=== PATIENT | female | born 1945 | race Caucasian/White ===

== ENCOUNTER 2024-11-30 09:50 | Day surgery (SDC) | payer MEDICARE, SELFPAY ==
[2024-11-30 10:21] VITALS: BMI 24.3
[2024-11-30 10:29] VITALS: BP 149/86; PULSE 64; RESP 16; TEMP 37.1; O2SAT 95
[2024-11-30] MEDS: 0.9 % SODIUM CHLORIDE 500 ML 500 ML 100 ML IV (10:30)
[2024-11-30] MEDS: SODIUM CHLORIDE 0.9 % (FLUSH) 10 ML SYRINGE IVF (10:30)
--- NOTE | 2024-11-30 11:12 | SUR.PREOP ---
Patient case cancelled per Dr. Carey. Patient needs to be off Remicaid for 4-6 weeks prior to surgery.
--- NOTE | 2024-11-30 11:13 | PM.GSPN ---
Subjective Subjective Date Seen: 11/30/24 Interval history: Patient did not hold her last dose of Remicade on 11/17/2024. I recommended to hold her Remicade for 4-6 weeks prior to proceeding with surgery. Her surgery today was canceled. Exam Const: Vital Signs, click to edit/add: Vital Signs - 24 hr 11/30/24 10:29 Temperature 98.8 F Pulse Rate 64 Respiratory Rate 16 Blood Pressure 149/86 H Pulse Oximetry 95 Oxygen Delivery Me thod Room Air
== END 2024-11-30 11:15 | disposition home or self-care (01) ==
PROVIDERS: PCP Family Medicine; Visit Provider Surgery
PROC: (CPT 49650; principal; 2024-11-30 11:30)
DX: Z53.09 Procedure and treatment not carried out because of other contraindication (principal); K40.90 Unilateral inguinal hernia, without obstruction or gangrene, not specified as recurrent
CPT/HCPCS: J7030

== ENCOUNTER 2024-12-29 06:06 | Day surgery (SDC) | payer MEDICARE, SELFPAY ==
[2024-12-29] VITALS (18 sets, daily range): BP systolic 109–151; BP diastolic 61–119; PULSE 44–662; RESP 14–20; TEMP 36.1–36.8; O2SAT 90–98; BMI 25.8
[2024-12-29] MEDS: LACTATED RINGERS 1000 ML 1,000 ML 100 ML IV (06:20)
[2024-12-29] MEDS: SODIUM CHLORIDE 0.9 % (FLUSH) 10 ML SYRINGE IVF (06:22)
--- NOTE | 2024-12-29 07:10 | P.GSOP_ITS ---
Operative Note Date of procedure: 12/29/24 Pre-op diagnosis: 1. Symptomatic left inguinal hernia. Post-op diagnosis: 1. Small direct and moderately sized indirect left inguinal hernia. Type of Procedure: 1. Laparoscopic left inguinal hernia repair with mesh. Indications: 79-year-old female on Remicade and prednisone for rheumatoid arthritis presented to clinic for evaluation of a left inguinal pain. She initially noticed this pain several months prior to presentation. The pain happened at random times and became severe. The pain lasted half a day. She was not sure if strenuous activity increase the pain. She also did not notice a bulge. Patient's most recent abdominal CT showed fat containing left inguinal hernia. There was also evidence of diverticulosis without diverticulitis. On clinical exam with the patient standing up and doing Valsalva there was no clear evidence of left inguinal hernia. Given patient's clinical history and her intermittent symptoms as well as the finding of fat containing inguinal hernia on CT scan, laparoscopic left inguinal hernia repair was recommended. The procedure was discussed in detail. The risks associated procedure including infection, bleeding, persistent pain, nerve pain, hernia recurrence were all discussed with the patient, and she agreed to proceed. Patient held her Remicade for 6 weeks and Prednisone 1 week ago. Procedure Description: After discussing the risks and benefits of the procedure, the patient signed inf ormed consent.? The operative site was marked and the patient was brought to the operating room and placed on the operating table in supine position.? Care was taken to pad the patient's pressure points.?? The patient was then intubated by anesthesia.?? The operative site was then prepped and draped in the usual sterile fashion.? A time-out was then performed. An infraumbilical skin incision was made with a scalpel and subcutaneous tissues were dissected with electrocautery. Anterior sheath was incised with electrocautery and rectus muscle was retracted laterally. A 12 mm spacemaker dissector system was introduced into the incision and advanced over the posterior sheath. Preperitoneal space was dissected with manually insufflating air under direct visualization. Once the tissues were dissected, the balloon was deflated and removed.? A laparoscopic balloon was placed into preperitoneal space and balloon was inflated. Preperitoneal space was insufflated with air. No bleeding was identified upon examination of preperitoneal space. We then placed two 5 mm ports suprapubically under direct visualization. ? The preperitoneal tissues were bluntly dissected with graspers.? The pubic bone was identified and? cleared from preperitoneal tissue.?? Inferior epigastrics on the left?side were retracted towards the abdominal wall.?? The round ligament and hernia sac were identified and were incarcerated in the left inguinal canal. The hernia sac was dissected off round ligament bluntly. The hernia sac was then reduced cranially. The round ligament was clipped with two 5 mm clips proximally and distally and divided between the clips. When adequate space was developed for mesh placement, a large left-sided 3D max Bard mesh was used and positioned around the spermatic cord. The mesh was tacked medially and laterally with?tacks.? Additional local anesthetic was injected directly into pre- peritoneal space. ? The space was deflated under direct visualization and mesh appeared to be still lying in a good position. The ports were then removed. Anterior sheath was then closed with a running 0-0 vicryl suture. Skin was closed with 4-0 monocryl using subcuticular stitch. Steri strips were applied over the laparoscopic?incisions. ? All counts were correct at the end of the case. Patient tolerated the procedure well and was transferred to PACU without any complications. Findings: Small direct hernia space and moderately sized indirect hernia sac incarcerated in the inguinal canal. This was reduced and repaired his mesh. Anesthesia: GETA Surgeon: Orestes Carey MD Estimated blood loss (mL): 5 Condition: stable Disposition: PACU
--- NOTE | 2024-12-29 07:10 | W.PM.H&PU ---
History & Physical Update History & Physical Update H&P Reviewed and patient assessed: No changes noted
[2024-12-29] MEDS: CEFAZOLIN 1 GM inj IVP (07:35)
[2024-12-29] MEDS: LIDOCAINE 1%-EPI 1:100,000 20 ML INFILTRATI (07:49)
[2024-12-29] MEDS: BUPIVACAINE 0.25% 30 ML INJECTION (07:49)
--- NOTE | 2024-12-29 08:38 | P.ANES_ITS ---
Anesthesia Charges Start Date/Time Anesthesia Start Date: 12/29/24 Anesthesia Start Time: 07:24 Stop Date/Time Anesthesia Stop Date: 12/29/24 Anesthesia Stop Time: 08:38 Summary Extremes of Age - Over 70 or under 1: FACE WORKER Coding CPT Codes CPT Codes: ANESTH REPAIR OF HERNIA - 96476 ([id number]) P3 - PATIENT W/SEVERE SYS DISEASE, QK - RELOCATION SERVICES SPECIALIST 2-4 CNCRNT ANES PROC, QX - FACE WORKER SVC W/ MD MED DIRECTION Additional Codes: Summary - Extremes of Age - Over 70 or under 1: FACE WORKER ([id number])
--- NOTE | 2024-12-29 08:38 | W.ANESCHARGE ---
Anesthesia Charges Start Date/Time Anesthesia Start Date: 12/29/24 Anesthesia Start Time: 07:24 Stop Date/Time Anesthesia Stop Date: 12/29/24 Anesthesia Stop Time: 08:38 Summary Extremes of Age - Over 70 or under 1: LACE PINNER Coding CPT Codes CPT Codes: ANESTH REPAIR OF HERNIA - 25895 ([id number]) P3 - PATIENT W/SEVERE SYS DISEASE, QK - CONTAINER WASHER 2-4 CNCRNT ANES PROC, QX - LACE PINNER SVC W/ MD MED DIRECTION Additional Codes: Summary - Extremes of Age - Over 70 or under 1: LACE PINNER ([id number])
--- NOTE | 2024-12-29 08:51 | SUR.PHASEI ---
Patient arrived to PACU. Stating an 8 for abdomen pain. Talked to anesthesia about her history with narcotics and excessive sleepiness. Anesthesia hung Tylenol IV for pain medication.
[2024-12-29] MEDS: HYDROmorphone 0.5 mg/0.5 ml inj IVP ×2 (08:58→09:17)
--- NOTE | 2024-12-29 09:04 | SUR.PHASEI ---
Consult with MDA after tylenol did not relieve pain. 0.25 mg of hydromorphone given
--- NOTE | 2024-12-29 09:28 | SUR.PHASEI ---
patient meets discharge criteria from PACU.
--- NOTE | 2024-12-29 09:41 | P.ANES_ITS ---
Anesthesia Charges Start Date/Time Anesthesia Start Date: 12/29/24 Anesthesia Start Time: 07:24 Stop Date/Time Anesthesia Stop Date: 12/29/24 Anesthesia Stop Time: 08:38 Coding CPT Codes CPT Codes: ANESTH SURGERY OF ABDOMEN - 08524 ([id number]) QK - GEOSPATIAL IMAGERY INTELLIGENCE ANALYST 2-4 CNCRNT ANES PROC, QX - HOSPITAL AIDE SVC W/ MD MED DIRECTION, P3 - PATIENT W/SEVERE SYS DISEASE
--- NOTE | 2024-12-29 09:41 | W.ANESCHARGE ---
Anesthesia Charges Start Date/Time Anesthesia Start Date: 12/29/24 Anesthesia Start Time: 07:24 Stop Date/Time Anesthesia Stop Date: 12/29/24 Anesthesia Stop Time: 08:38 Coding CPT Codes CPT Codes: ANESTH SURGERY OF ABDOMEN - 00096 ([id number]) QK - IT SECURITY PROJECT MANAGER 2-4 CNCRNT ANES PROC, QX - JAVA ENGINEER SVC W/ MD MED DIRECTION, P3 - PATIENT W/SEVERE SYS DISEASE
--- NOTE | 2024-12-29 09:43 | P.ANES_ITS ---
Anesthesia Charges Start Date/Time Anesthesia Start Date: 12/29/24 Anesthesia Start Time: 07:24 Stop Date/Time Anesthesia Stop Date: 12/29/24 Anesthesia Stop Time: 08:38 Summary Extremes of Age - Over 70 or under 1: MDA Coding CPT Codes CPT Codes: ANESTH SURGERY OF ABDOMEN - 73231 ([id number]) P3 - PATIENT W/SEVERE SYS DISEASE, QK - VISUAL BASIC DEVELOPER 2-4 CNCRNT ANES PROC, QX - CURING BIN OPERATOR SVC W/ MD MED DIRECTION Additional Codes: Summary - Extremes of Age - Over 70 or under 1: MDA ([id number])
--- NOTE | 2024-12-29 09:43 | W.ANESCHARGE ---
Anesthesia Charges Start Date/Time Anesthesia Start Date: 12/29/24 Anesthesia Start Time: 07:24 Stop Date/Time Anesthesia Stop Date: 12/29/24 Anesthesia Stop Time: 08:38 Summary Extremes of Age - Over 70 or under 1: MDA Coding CPT Codes CPT Codes: ANESTH SURGERY OF ABDOMEN - 63444 ([id number]) P3 - PATIENT W/SEVERE SYS DISEASE, QK - PIN MACHINE OPERATOR 2-4 CNCRNT ANES PROC, QX - DEPENDENCY CASE MANAGER SVC W/ MD MED DIRECTION Additional Codes: Summary - Extremes of Age - Over 70 or under 1: MDA ([id number])
[2024-12-29] MEDS: IBUPROFEN 400 MG TABLET PO (11:30)
[2024-12-29] MEDS: METOCLOPRAMIDE HCL 5 MG/ML INJ 10 MG IVP (12:05)
== END 2024-12-29 12:35 | disposition home or self-care (01) ==
PROVIDERS: PCP Family Medicine; Visit Provider Surgery
PROC: (CPT 49650; principal; 2024-12-29 07:30)
DX: K40.90 Unilateral inguinal hernia, without obstruction or gangrene, not specified as recurrent (principal)
CPT/HCPCS: 49650; 00830; 00860; 99100; A9270; C1781; J0330; J0665; J0690; J1100; J1171; J2405; J2704; J2710; J2765; J3475; J3490; J7120

== ENCOUNTER 2025-07-08 10:30 | Emergency (ER) | payer MEDICARE, SELFPAY ==
--- OUTSIDE RECORDS SUMMARY | 2025-07-08 10:41 | XMS_ITS | Encounter Summary ---
Author Organization [facility] Address [address] [address] Care Team Providers Care [employer] Delivery Name Role Phone No Primary/Referring, Phy Primary Care Provider Unavailable Encounter Details Date Type Department Care Team (Late st Contact Info) Description 11/16/2011 Correspondence External to External, [place] [address] ABN Social History Tobacco Use Types Packs/Day Years Used Date Smoking Tobacco: Never Assessed Comments Unknown Sex and Gender Information Value Date Recorded Sex Assigned at Not on file Legal Sex Female 6:46 AM CDT Gender Identity Not on file Sexual Orientation Not on file documented as of this encounter Progress Notes * External, Provider - 11/16/2011 12:00 AM CST documented in this encounter Plan of Treatment Not on file documented as of this encounter Visit Diagnoses Not on filedocumented in this encounter Care Teams [employer] Delivery Relationship Specialty Start Date End Date No Primary/Referring, Phy PCP - General 06/27/12 documented as of this encounter
--- OUTSIDE RECORDS SUMMARY | 2025-07-08 10:41 | XMS_ITS | Clinical Summary ---
Author Organization [employer] [facility] Address [address] [place] [address] Care Team Providers Care Travel Accommodations Rater Name Role Phone Katheryn Linn DO Primary Care Provider [phone] Allergies Active Allergy Reactions Criticality Noted Date Comments Fentanyl *Unknown 11/03/2024 hard to wake up Medications inFLIXimab (REMICADE) 100 mg injectionIndicat ions:Rheumatoid arthritis(714.0) Gets every 6 weeks 600 mg 0 09/12/20 12 Active omeprazole (PRILOSEC) 20 mg Delayed-Release capsule Take 20 mg by mouth once daily if needed. 08/09/20 22 Active predniSONE (DELTASONE) 1 mg tablet Take 2 Tablets by mouth once daily. 05/06/20 24 Active fluticasone (50 mcg per actuation) nasal solution (FLONASE)Indicat ions:Dysfunction of Eustachian tube, unspecified laterality,Non-r ecurrent acute suppurative otitis media of left ear without spontaneous rupture of tympanic membrane Inhale 2 Sprays into affected nostril(s) once daily. 16 g 07/11/20 24 Active Additional Information Patient not taking.Reported on 06/11/2025 albuterol HFA (PRO-AIR; VENTOLIN; PROVENTIL) 90 mcg/actuation inhalerIndicatio ns:Mild persistent asthma with acute exacerbation (HC),Pulmonary fibrosis, unspecified (HC) Inhale 1-2 Puffs by mouth every 4 hours if needed for Shortness Of Breath or Wheezing. 18 g 11 04/09/20 25 Active guaiFENesin (Mucinex) 600 mg Extended-Release tabletIndication s:Bronchiectasis without complication (HC) Take 1 Tablet (600 mg) by mouth 2 times daily if needed for Expectoration. 180 Tablet 3 04/09/20 25 Active fluticasone furoate-vilanter oL (Breo Ellipta) 100-25 mcg/dose inhalation powderIndication s:Mild persistent asthma without complication (HC) Inhale 1 Puff by mouth once daily. 60 Each 11 04/09/20 25 Active levothyroxine (SYNTHROID) 75 mcg tabletIndication s:Hypothyroidism (acquired) Take 1 Tablet (75 mcg) by mouth once daily. 60 Tablet 1 06/11/20 25 Active folic acid 1 mg tablet Take 1 Tablet (1 mg) by mouth once daily. 06/11/20 25 Active cholecalciferol (Vitamin D) 1,000 unit capsule Take 1 Capsule (1,000 units) by mouth once daily. 06/11/20 25 Active levothyroxine 75 mcg tabletIndication s:Hypothyroidism (acquired) Take 1 Tablet (75 mcg) by mouth once daily. 60 Tablet 1 02/17/20 25 025 Discontin ued(Reord er (E-cancel not sent)) Active Problems Problem Noted Date Diagnosed Date LRTI (lower respiratory tract infection) 025 Overview (04/09/2025): improved Chronic cough 04/09/2025 Pulmonary fibrosis, unspecified 11/03/2024 Asthma 05/01/2024 History of colon polyps 01/22/2022 Overview (01/22/2022): Colonoscopy 01/2022 diverticulosis, repeat in 7 years with propofol Hypothyroidism (acquired) 11/25/2020 osteoporosis 02/06/2011 Routine health maintenance 02/06/2011 Hypothyroid 04/06/2010 Rheumatoid arthritis(714.0) 04/06/2010 Resolved Problems Problem Noted Date Diagnosed Date Resolved Date Migraine headache 12/28/2016 06/18/2025 Overview (12/05/2021): Per External Records Encounters Date Type Department Care Team Description 07/08/2025 Nurse Triage [facility] [address] [place] [address] Sir Linni Latonya, DO Hip Pain/problem 06/18/2025 8:48 AM CDT - 06/18/2025 11:59 PM CDT Hospital Encounter [facility] [address] [address] [place] Katheryn Latonya, DO At risk for heart disease 06/18/2025 Travel 06/14/2025 Telephone [facility] [address] [facility] [place] [address] Katheryn Linn Latonya, DO Concerns 06/11/2025 10:10 AM CDT Office Visit [facility] [address] [facility] [place] [address] Katheryn Linn Latonya, DO Results (Cholesterol - discuss medication) 06/11/2025 Travel 06/02/2025 Telephone [facility] [address] [facility] [place] [address] Katheryn Linn, DO Questions (CHOLESTEROL) 04/15/2025 9:00 AM CDT Orders Only [facility] [address] [facility] [place] [address] [place], [place] <No scans attached> 04/15/2025 Travel 04/09/2025 9:45 AM CDT Office Visit [facility] [place] [address] [facility] [address] [phone] Fadumo Miller MD Follow Up (Patient reports will cough for half the day following Breo dose, rattling and productive cough has been increasingly worse lately) 04/09/2025 Travel from Last 3 Months Immunizations Immunization Administration Dates Next Due Influenza A (H1N1), Inactivated 09/26/2009 Influenza A (H1N1), Suma carter (Age >=3 Years) 09/26/2009 Influenza Virus, Unspecified 07/25/2018, 08/06/2016,06/23/2015,2013,07/24/2013,09/08/2012,09/26/2009,1 09/29/2004 Influenza, High-dose Inactivated 024,06/30/2020,06/26/2019,2017,06/27/2017,08/06/2016,06/23/2015 Influenza, High-dose Quadriv alent Inactivated 06/28/2022,07/13/2021 Influenza, IIV3 (Age >=3 years) 07/04/20 14,06/27/2013,09/04/2012,2004,07/19/2003,08/13/2001 Influenza, Inactivated AIIV4 (Age 65+ Years) Preserv Free 07/19/2023 Pneumococcal Poly,23-Valent (Pneumovax) 12/30/2013,07/30/2005 Pneumococcal conj 13-Valent (Prevnar 13) 12/16/2014 Td (Age >=7 Years) 06/06/2004,04/07/1993 Tdap 01/25/2024,09/10/2013 Zoster (Shingrix-RZV, recombinant) 10/19/2019, Family History Medical History Relation Name Comments Parkinsonism Brother 1 Developmental delay Brother 2 TWIN Developmental delay Brother 3 Aneurysm Father in heart Hypothyroidism Mother lived to Obesity Mother s/p gastric byp ass Cancer-ovarian Sister 1 16 siblings. Cancer Sister 2 smoker/drinker Cancer-breast No Family History Relation Name Status Comments Brother 1 Brother 2 Brother 3 Father Mother Sister 1 Sister 2 Social History Tobacco Use Types Packs/Day Years Used Date Smoking Tobacco: Never Smokeless Tobacco: Never Tobacco Cessation:Counseling Given: Yes Alcohol Use Standard Drinks/Week Comments No 0 (1 standard drink = 0.6 oz pur e alcohol) PHQ-2 Answer Date Recorded PHQ-2 TOTAL SCORE 0 02/12/2025 Social Connections Answer Date Recorded Do you often feel lonely or isolated from those around you? 0 02/12/2025 Alcohol Use Answer Date Recorded How often do you have a drink containing alcohol ? 0 06/11/2025 Average Number of Drinks Not on file 025 Frequency of Binge Drinking Not on file 05/24 Financial Resource Strain Answer Date R ecorded Difficulty of Paying Living Expenses 3 02/12/2025 Difficulty of Paying Living Expenses Not on file 02/12/2025 Food Insecurity Answer Date Recorded Do you worry your food will run out before you are able to buy more? 1 02/12/2025 Transportation Needs Answer Date Record ed Does lack of transportation keep you from medica l appointments? 1 02/12/2025 Does lack of transportation keep you from work, meetings or getting things that you need? 1 02/12/2025 Housing Stability Answer Date Recorded What is your housing situation today? 1 02/12/2025 Utilities Answer Date Recorded Do you have trouble paying f or utilities (for example, heat, electricity, water, phone)? 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9 cm (4' 11) 04/09/2025 10:00 AM CDT Body Mass Index 26.48 04/09/2025 10:00 AM CDT Plan of Treatment Health Maintenance Due Date Last Done Comments Hepatitis C screening for age 18-79 1963 RSV vaccine for adults or (1 - 1-dose 75+ series) 2021 COVID-19 vaccine series ( season) 2025 08/25/2021, 12/17/2020, 11/26/2020 Influenza Vaccine (#1) 2025 , 07/19/2023, 06/30/2020, Additional history exists Depression screening for age 12+ 02/12/2026 02/12/2025, 09/28/2024, 01/24/2024, Additional history exists Medicare Wellness for age 65+ 02/13/2026 02/12/2025, 01/23/2024, 10/17/2022 BMI (ht and wt on same day) for age 18+ 04/09/2026 04/09/2025, 02/12/2025, 11/02/2024, Additional history exists Tetanus booster 01/24/2034 01/25/2024, 08/23, 06/06/2004, Additional history exists Pneumococcal series for age 50+ Completed 12/16/2014, 12/30/2013, 07/30/2005 Zoster (shingles) series for age 50+ Completed 10/19/2019, 07/29/2019 DEXA/DXA scan for age 65+ Completed 01/10/2022 Hepatitis B series for 19+ Aged Out N o longer eligible based on patient's age to complete this topic Procedures Procedure Name Priority Date/Time Associated Diagnosis Comments CT CARDIAC CALCIUM SCORE ONLY WO SINGLE READ Routine 06/18/2025 9:08 AM CDT At risk for heart disease TSH Routine 04/15/2025 8:34 AM CDT Hypothyroidism (acquired) LIPID PANEL W REFLEX MEASURED LDL Routine 04/15/2025 8:34 AM CDT Hypertriglyceridemi a SCAN-PULMONARY FUNCTION TEST 04/09/2025 12:00 AM CDT SCAN-BONE DENSITOMETRY DEXA 01/10/2022 12:00 AM CDT from Last 3 Months or Most Recently Relevant to Health Maintenance Results * CT CARDIAC CALCIUM SCORE ONLY WO SINGLE READ (06/18/2025 9:08 AM CDT) Anatomical Region Laterality Modality Computed Tomogra phy 06/19/2025 2:26 AM CDT Narrative 06/19/2025 2:26 AM CDT For Patients: As a result of the Century Cures Act, medical imaging exams and procedure reports are released immediately into your electronic medical record. You may view this report before your referring provider. If you have questions, please contact your health care provider. CT CARDIAC CALCIUM SCORING PATIENT HISTORY: At risk for heart disease. CAD screening, intermediate CAD risk, treadmill candidate. COMPARISON: CT of the abdomen and pelvis 10/05/2024. REPORT: High-resolution, ECG-synchronized noncontrast computed tomography of the heart with attention to the coronary arteries was performed. Coronary calcification analyzed using Siemens calcium scoring software. These are the results of the evaluation: CT Calcium Scoring: This cardiac CT examination will provide you with a coronary artery calcium score. A coronary artery calcium score is a measurement of the amount of calcified plaque in the coronary arteries, the arteries that supply blood to the heart muscle. The coronary artery calcium score is calculated based on the number, size, and density of the calcified plaques in the coronary arteries. The amount of calcified coronary plaque has been shown to directly correlate with future risk for heart disease. The coronary artery calcium is a marker of how much plaque has accumulated in the peters of the coronary arteries. It is not a test for blockages. This test is intended to assess cardiovascular risk in patients without symptoms. It is not intended to be a test for individuals with chest pain or other possible symptoms suggestive of heart disease. If you are having chest pain or other potential cardiovascular symptoms, see your physician. Calcium Score: Left main = 0 Left anterior descending = 160.0 Left circumflex = 24.2 Right coronary artery = 27.9 Total calcium score = 212.1 [address] the patient in the moderate calcification category. Calcified Plaque Seen Assessment: - Your cardiac CT examination demonstrates plaque in the coronary arteries. - The amount of plaque in the coronary arteries directly correlates with the risk for heart attack and other coronary events (such as bypass or stenting). - As discussed above, the coronary artery calcium score is intended for risk assessment in patients without cardiovascular symptoms. If you are having chest pain or other potential cardiovascular symptoms, see your physician. Recommendations: - To lower your cardiovascular risk, we strongly recommend adherence to healthy lifestyle behaviors including: - Following a heart healthy diet focused on modest portion sizes, a high intake of fresh fruits and vegetables, whole grains, healthy fats (olive oil, nuts and seeds, avocados), and healthy proteins (unprocessed meats, fish, legumes). - Following an active lifestyle including 30-45 minutes of moderate intensity exercise 5-6 times per week. - Avoidance of tobacco products. - Cardiovascular preventive medication, including a daily aspirin and cholesterol-lowering statin medications have been shown to reduce the risk of a future heart attack and stroke, especially in individuals at higher risk for heart disease. - We recommend that individuals with calcified plaque discuss the risks and benefits of cholesterol-lowering medications, blood pressure medications, and aspirin with their primary care physician. Cholesterol-lowering medications have been shown to reduce the risk of heart attack in individuals at elevated risk, including in patients with normal cholesterol levels at baseline. - A coronary artery calcium score is not a test for blockages, it is a test for underlying plaque. An elevated calcium score is not an indication for additional testing for coronary heart disease though one may be considered based on your clinical history. The results of your coronary artery calcium score should be reviewed by your primary care provider or med surg rn. - These recommendations are generalized and may not specifically apply to you as an individual. Your primary care physician is in the best position to provide advice on your care and clinical decisions should ultimately be made by you and your physician. EXTRA-CARDIAC FINDINGS: Normal heart size. No pericardial effusion. Basilar predominant peripheral reticular opacities and mild bronchiectasis compatible with underlying pulmonary fibrosis. Mild diffuse bronchial wall thickening with scattered mucous plugging. Multiple small noncalcified pulmonary nodules bilaterally, the largest of which measures 5 mm in the superior segment right lower lobe (series 5, image 25). Please see follow-up guidelines below. [employer] SOC[employer] GUIDELINES - SOLID NODULES: : MULTIPLE LOW RISK - nodule less than 6 mm: No routine follow-up. - nodule 6-8 mm: CT at 3-6 months, then consider CT at 18-24 months. - nodule greater than 8 mm: CT at 3-6 months, then consider CT at 18-24 months. MULTIPLE HIGH RISK - nodule less than 6 mm: Optional CT at 12 months. - nodule 6-8 mm: CT at 3-6 months, then at 18-24 months. - nodule greater than 8 mm: CT at 3-6 months, then at 18-24 months. Please note that all CT scans at this facility use dose modulation, iterative reconstruction, and/or weight-based dosing when appropriate to reduce radiation dose to as low as reasonably achievable. Dictated by Ellie Rajan MD @ 06/19/2025 2:26:43 AM (Electronically Signed) Procedure Note Ellie Rajan MD - 06/19/2025 For Patients: As a result of the 21st Century Cures Act, medical imagingexams and procedure reports are released immediately into your electronicmedical record. You may view this report before your referring provider.If you have questions, please contact your health care provider. CT CARDIAC CALCIUM SCORING PATIENT HISTORY: At risk for heart disease. CAD screening, intermediateCAD risk, treadmill candidate. COMPARISON: CT of the abdomen and pelvis 10/05/2024. REPORT: High-resolution, ECG-synchronized noncontrast computed tomographyof the heart with attention to the coronary arteries was performed. Coronary calcification analyzed using Siemens calcium scoring software.These are the results of the evaluation: CT Calcium Scoring: This cardiac CT examination will provide you with acoronary artery calcium score. A coronary artery calcium score is ameasurement of the amount of calcified plaque in the coronary arteries,the arteries that supply blood to the heart muscle. The coronary arterycalcium score is calculated based on the number, size, and density of thecalcified plaques in the coronary arteries. The amount of calcifiedcoronary plaque has been shown to directly correlate with future risk forheart disease. The coronary artery calcium is a marker of how much plaque has accumulatedin the peters of the coronary arteries. It is not a test for blockages.This test is intended to assess cardiovascular risk in patients withoutsymptoms. It is not intended to be a test for individuals with chest painor other possible symptoms suggestive of heart disease. If you are havingchest pain or other potential cardiovascular symptoms, see yourphysician. Calcium Score: Left main = 0 Left anterior descending = 160.0 Left circumflex = 24.2 Right coronary artery = 27.9 Total calcium score = 212.1 [address] the patient in the moderate calcification category. Calcified Plaque Seen Assessment: - Your cardiac CT examination demonstrates plaque in the coronaryarteries. - The amount of plaque in the coronary arteries directly correlates withthe risk for heart attack and other coronary events (such as bypass orstenting). - As discussed above, the coronary artery calcium score is intended forrisk assessment in patients without cardiovascular symptoms. If you arehaving chest pain or other potential cardiovascular symptoms, see yourphysician. Recommendations: - To lower your cardiovascular risk, we strongly recommend adherence tohealthy lifestyle behaviors including: - Following a heart healthy diet focused on modest portion sizes, a highintake of fresh fruits and vegetables, whole grains, healthy fats (oliveoil, nuts and seeds, avocados), and healthy proteins (unprocessed meats,fish, legumes). - Following an active lifestyle including 30-45 minutes of moderateintensity exercise 5-6 times per week. - Avoidance of tobacco products. - Cardiovascular preventive medication, including a daily aspirin andcholesterol-lowering statin medications have been shown to reduce the riskof a future heart attack and stroke, especially in individuals at higherrisk for heart disease. - We recommend that individuals with calcified plaque discuss the risksand benefits of cholesterol-lowering medications, blood pressuremedications, and aspirin with their primary care physician.Cholesterol-lowering medications have been shown to reduce the risk ofheart attack in individuals at elevated risk, including in patients withnormal cholesterol levels at baseline. - A coronary artery calcium score is not a test for blockages, it is atest for underlying plaque. An elevated calcium score is not an indicationfor additional testing for coronary heart disease though one may beconsidered based on your clinical history. The results of your coronaryartery calcium score should be reviewed by your primary care provider orcardiologist. - These recommendations are generalized and may not specifically apply toyou as an individual. Your primary care physician is in the best positionto provide advice on your care and clinical decisions should ultimately bemade by you and your physician. EXTRA-CARDIAC FINDINGS: Normal heart size. No pericardial effusion.Basilar predominant peripheral reticular opacities and mild bronchiectasiscompatible with underlying pulmonary fibrosis. Mild diffuse bronchial wallthickening with scattered mucous plugging. Multiple small noncalcifiedpulmonary nodules bilaterally, the largest of which measures 5 mm in thesuperior segment right lower lobe (series 5, image 25). Please seefollow-up guidelines below. [employer] SOC[employer] GUIDELINES - SOLID NODULES: : MULTIPLE LOW RISK - nodule less than 6 mm: No routine follow-up. - nodule 6-8 mm: CT at 3-6 months, then consider CT at 18-24 months. - nodule greater than 8 mm: CT at 3-6 months, then consider CT at 18-24months. MULTIPLE HIGH RISK - nodule less than 6 mm: Optional CT at 12 months. - nodule 6-8 mm: CT at 3-6 months, then at 18-24 months. - nodule greater than 8 mm: CT at 3-6 months, then at 18-24 months. Please note that all CT scans at this facility use dose modulation,iterative reconstruction, and/or weight-based dosing when appropriate toreduce radiation dose to as low as reasonably achievable. Dictated by Ellie Rajan MD @ 06/19/2025 2:26:43 AM (Electronically Signed) Xoftqra DO CT Final Result * LIPID PANEL W REFLEX MEASURED LDL (04/15/2025 8:34 AM CDT) CHOLESTEROL, TOTAL 170 <200 mg/dL [facility] HDL CHOLESTEROL 54 > OR = 50 mg/dL [facility] TRIGLYCERIDES 125 <150 mg/dL [facility] LDL-CHOLESTEROL 93 mg/dL (calc) [facility] Comment: Reference range: <100 Desirable range <100 mg/dL for primary prevention; <70 mg/dL for patients with CHD or diabetic patients with > or = 2 CHD risk factors. LDL-C is now calculated using the Jesus-Corea calculation, which is a validated novel method providing better accuracy than the Friedewald equation in the estimation of LDL-C. Jesus SS et al. RITA. 2013;310(19): 6495-9037 (http://education.zerved.SPEEDELO/faq/OUN748) CHOL/HDLC RATIO 3.1 <5.0 (calc) [facility] NON HDL CHOLESTEROL 116 <130 mg/dL (calc) [facility] Comment: For patients with diabetes plus 1 major ASCVD risk factor, treating to a non-HDL-C goal of <100 mg/dL (LDL-C of <70 mg/dL) is considered a therapeutic option. Blood BLOOD SPECIMEN / Unknown 04/15/2025 8:34 AM CDT 04/15/2025 8:34 AM CDT us Katheryn Latonya Rennyqra DO CHEMISTRY Final Result Performing Organization Address [facility]/ZIP Co de Phone Number [facility] [address] [place] [address], [facility] [address] [place] [address] * TSH (04/15/2025 8:34 AM CDT) TSH 1.95 0.40 - 4.50 mIU/L [facility] Blood BLOOD SPECIMEN / Unknown 04/15/2025 8:34 AM CDT 04/15/2025 8:34 AM CDT us Katheryn Latonya Linn DO CHEMISTRY Final Result Performing Organization Address [facility] Co de Phone Number [employer] [facility] [address] [place] [address], [facility] [address] [place] [address] * SCAN-PULMONARY FUNCTION TEST (04/09/2025 12:00 AM CDT) us Scanner OTHER Final Result * SCAN-BONE DENSITOMETRY DEXA (01/10/2022 12:00 AM CDT) Anatomical Region Laterality Modality Other us Scanner OTHER Final Result from Last 3 Months or Most Recently Relevant to Health Maintenance Insurance [facility] Care Teams Travel Accommodations Rater Relationship Specialty Start Date End Date Katheryn Linn DO [address] [facility] [id number] PCP - General Family Practice 09/28/24
--- OUTSIDE RECORDS SUMMARY | 2025-07-08 10:41 | XMS_ITS | Clinical Summary ---
Author Organization [facility] Address [address] [place] [address] Care Team Providers Care Map Compiler Name Role Phone No Primary/Referring, Phy Primary Care Provider Unavailable Source Comments You are receiving this document as you are listed as the primary care provider,follow-up provider, or the patient has been referred to you for consultation.This is in compliance with the Medicare andMedicaid EHR Incentive Program,which states Providers who transition their patient to another setting of careor provider of care or refers their patient to another provider of care shouldprovide summary care record for each transition of care or referral. [facility] Allergies No known active allergies Medications InFLIXimab (REMICADE IV) q 6 weeks Active PredniSONE 2 MG TBEC Takes 2 mg daily Active Methotrexate Sodium (METHOTREXATE OR) Unsure of dose takes 7 on sundays Active Levothyroxine Sodium 112 MCG CAPS Daily Active Active Problems Problem Noted Date Diagnosed Date Nonallopathic lesion of sacral region 01/11/2012 Overview (06/23/2015): Epic Nonallopathic lesion of thoracic region 01/11/20 12 Overview (06/23/2015): Epic Spasm of muscle 01/11/2012 Resolved Problems Problem Noted Date Diagnosed Date Resolved Date Nonallopathic lesion of cervical region 01/11/2012 02/25/2014 Overview (05/15/2017): Epic ; Other nonallopathic lesion of cervical region Immunizations Immunization Administration Dates Next Due Pfizer Monovalent 12+ Purple Top 12/17/2020,03/0 02/2021 Social History Tobacco Use Types Packs/Day Years Used Date Smoking Tobacco: Never Comments Unknown Sex and Gender Information Value Date Recorded Sex Assigned at Not on file Legal Sex Female 6:46 AM CDT Gender Identity Not on file Sexual Orientation Not on file Last Filed Vital Signs Vital Sign Reading Time Taken Comments Blood Pressure 107/77 02/22/2014 3:01 PM CDT Pulse 68 02/22/2014 3:01 PM CDT Temperature - - Respiratory Rate - - Oxygen Saturation - - Inhaled Oxygen Concentration - - Weight 63.5 kg (140 lb) 02/22/2014 3:01 PM CDT Height 152.4 cm (5') 02/22/2014 3:01 PM CDT Body Mass Index 27.34 02/22/2014 3:01 PM CDT Plan of Treatment Health Maintenance Due Date Last Done Comments Hep C Screening (Preventive Services) 1945 Medicare Annual Wellness Visit 1945 Dexa 2011 RSV Vaccine (1 - 1-dose 75+ series) 2021 DTaP/Tdap/Td Vaccine (2 - Tdap) 09/10/2023 09/10/2013, 06/06/2004, 04/07/1993 COVID-19 Vaccine (3 - season) 2025 12/17/2020, 11/26/2020 Influenza Vaccine (#1) 2025 , 06/26/2019, 07/25/2018, Additional history exists Pneumococcal Vaccine 50+ Yrs Completed , 12/30/2013, 07/31/2005 Zoster/Shingles Vaccine Completed 10/19/2019, 07/29 HepA Vaccine Aged Out No longer eligi ble based on patient's age to complete this topic HepB Vaccine Aged Out No longer eligi ble based on patient's age to complete this topic Hib Vaccine Aged Out No longer eligi ble based on patient's age to complete this topic IPV (Polio) Vaccine Aged Out No longe r eligible based on patient's age to complete this topic MCV4 Vaccine Aged Out No longer eligi ble based on patient's age to complete this topic Meningococcal B Vaccine Aged Out No l onger eligible based on patient's age to complete this topic Insurance MEDICARE BCBS MEDICARE SUPPLEMENT Care Teams Map Compiler Relationship Specialty Start Date End Date No Primary/Referring, Phy PCP - General 06/27/12
[2025-07-08 11:13] VITALS: BP 157/85; PULSE 60; RESP 16; TEMP 36.2; O2SAT 96; BMI 24.6
--- NOTE | 2025-07-08 11:25 | ED_ITS ---
HPI - General Adult General Date Seen: 07/08/25 Chief complaint: Hip Injury/Pain Stated complaint: Fall, hip pain Time Seen by Provider: 07/08/25 11:09 Source: patient, family and RN notes reviewed Mode of arrival: ambulatory Limitations: no limitations History of Present Illness HPI narrative: Gabi is a very pleasant 80-year-old female with history of osteoporosis, history are for arthritis with daily prednisone use who comes to the emergency room with right hip and buttock pain. Gabi was noted to be coming down off a small step ladder and missed the last step. She landed heavily on her right hip and since that time has had increasing hip in the buttock radiating down the front and medial aspect of the right thigh. She did not fall hit her head or cause any other injury. She has not injured her hip in the past but does note that she has bursitis on that side. No numbness or tingling of the feet. Since that time she is having a hard time with bearing weight. At rest she can flex her hip and really does not have significant pain. Related Data Home Medications ?Medication ?Instructions ?Recorded ?Confirmed levothyroxine 88 mcg tablet 88 mcg PO DAILY 08/19/23 0 12/29/24 prednisone 1 mg tablet 2 mg PO DAILY 05/28/2412/29 albuterol sulfate 90 mcg/actuation 1 inh inhalation Q4 H PRN 11/27/24 12/29/24 aerosol inhaler fluticasone furoate 100 1 ea inhalation DAILY 12/29/24 mcg-vilanterol 25 mcg/dose inhalation powder (Breo Ellipta) omeprazole 20 mg capsule,delayed 20 mg PO DAILY PRN 12/29/24 release Previous Rx's ?Medication ?Instructions ?Recorded hydrocodone 5 mg-acetaminophen 325 1 tab PO Q6H PRN pa in #20 tabs 12/29/24 mg tablet Allergies Allergy/AdvReac Type Severity Reaction Status Date / Time fentanyl AdvReac Severe Drowsy Verified 07/08/25 11:09 Review of Systems Status of ROS: Reports: 10 or more systems reviewed and unremarkable except as noted in History and below Const: Denies: fever Eyes: Denies: change in vision ENMT: Denies: neck pain Cardio: Denies: shortness of breath with exertion Resp: Denies: shortness of breath Musculo: Reports: back pain, extremity pain, joint pain and limited range of motion; Denies: neck pain or extremity swelling [facility] Medical History Pulmonary fibrosis ?J84.10 - Pulmonary fibrosis, unspecified (ICD-10) Asthma ?J45.909 - Unspecified asthma, uncomplicated (ICD-10) Headache, migraine ?G43.909 - Migraine, unspecified, not intractable, without status migrainosus (ICD-10) Osteoporosis ?M81.0 - Age-related osteoporosis without current pathological fracture (ICD- 10) Rheumatoid arthritis ?M06.9 - Rheumatoid arthritis, unspecified (ICD-10) Hypothyroid ?E03.9 - Hypothyroidism, unspecified (ICD-10) Surgical History History of open reduction and internal fixation (ORIF) procedure ?Z98.890 - Other specified postprocedural states (ICD-10) Hx of appendectomy ?Z90.49 - Acquired absence of other specified parts of digestive tract (ICD- 10) Social History Smoking Status: Never smoker Do you use any of these nicotine containing products: None How often do you have a drink containing alcohol: never How often do you have six or more drinks on one occasion: Never AUDIT-C Alcohol total score: 0 Non-prescribed substance use: denies use Caffeine: Yes Are you using contraception or practicing any form of control: No Exam Narrative: Exam Narrative: Alert and oriented. Very pleasant woman in no acute distress. No respiratory distress. Palpation down the lumbar spine without pain. Discomfort in the right paraspinous musculature. No obvious swelling. Patient has movement of her leg in bed. With hip flexion. Distally sensation motor is intact. Const: Vital Signs, click to edit/add: Vital Signs - 24 hr 07/08/25 11:13 Temperature 97.2 F L Pulse Rate [Pulse Oximeter] 60 Respiratory Rate 16 Blood Pressure [Le ft Upper Arm] 157/85 H Pulse Oximetry 96 Oxygen Delivery Me thod Room Air Documenting provider has reviewed patient's vital signs: yes Course Course ED Course: Patient noted to be at high risk for fracture giving chronic prednisone use and history of osteoporosis. Will start with an x-ray of the pelvis and the right hip. If this is negative I do suggest CT of the hip in search of an occult fracture. Patient is in agreement with this plan. Differential diagnosis includes fracture, labral tear, musculoskeletal injury, muscle pull, pelvic fracture. Reevaluation(s) Reevaluation #1: X-ray without evidence of fracture. Will proceed with CT. Vital Signs Vital signs: Initial Vital Signs Temperature 97.2 F L 07/08/25 11:13 Temperature Source Temporal Artery Scan 07/08/25 11:13 Pulse Rate 60 07/08/25 11:13 Respiratory Rate 16 07/08/25 11:13 Blood Pressure 157/85 H 07/08/25 11:13 Blood Pressure Mean 109 H 07/08/25 11:13 Blood Pressure Position High-Fowlers 07/08/25 11:13 Pulse Oximetry 96 07/08/25 11:13 Oxygen Delivery Method Room Air 07/08/25 11:13 Vital Signs Temperature 97.2 F L 07/08/25 11:13 Pulse Rate 60 07/08/25 11:13 Respiratory Rate 16 07/08/25 11:13 Blood Pressure 157/85 H 07/08/25 11:13 Pulse Oximetry 96 07/08/25 11:13 Oxygen Delivery Method Room Air 07/08/25 11:13 Temperature 97.2 F L 07/08/25 11:13 Pulse Rate 60 07/08/25 11:13 Respiratory Rate 16 07/08/25 11:13 Blood Pressure 157/85 H 07/08/25 11:13 Pulse Oximetry 96 07/08/25 11:13 Oxygen Delivery Method Room Air 07/08/25 11:13 Medical Decision Making MDM Narrative Medical decision making narrative: 1. Right hip injury-no evidence of acute fracture on plain film or CT. Do recommend the use of a walker or cane so that patient may have some relief of weight-bearing. I do think crutches would increase risk of fall. At this time patient states that she does not like to use a walker but will use a cane. Recommend icing and rest. She should not be going up and down stairs at this time. Did give her the option of seeing orthopedics in the next 48 hours but she would like to wait and see how she does. If she has worsening symptoms will follow-up with orthopedics next week. Certainly with no evidence of bony abnormality this could represent a labral injury. 2. Disposition-home at this time. Return for worsening symptoms. Follow-up with primary MD or Orthopedics next week for ongoing symptoms. An MRI and/or PT may be necessary. Medical Records Medical records reviewed: Yes I reviewed the patient's medical records Imaging Data Right hip x-ray: Attestation: I have reviewed the pertinent imaging results. My impression: Questionable mildly shortened femoral neck. Radiologist's impression: Bones: No acute fracture or dislocation. Joint spaces: Mild degenerative disease of the visualized spine. Soft tissues: Sequela of prior left hernia repair. Clips in the pelvis. Impression: No acute fracture or dislocation. Right hip CT: Attestation: I have reviewed the pertinent imaging results. My impression: No obvious fracture Radiologist's impression: There is no acute fracture or malalignment. [id number] osteoarthrosis of the right hip. Mild degenerative changes of the right sacroiliac joint. Partially imaged severe facet arthropathy in the lower lumbar spine. The bones appear demineralized. No significant right hip joint effusion. Scattered vascular calcifications. Mild enthesopathy about the pelvis. Scattered colonic diverticula. IMPRESSION: No acute osseous abnormality. Discharge Plan Discharge Clinical Impression: Injury of hip, right Patient Disposition: Home, Self-Care Condition: Unchanged Additional Instructions: We did not identify a fracture in the pelvis or hip on x-ray. We did not identify a hidden fracture of the hip on CT. Recommend use of cane or walker and resting over the next 72 hours. Follow-up with orthopedics if you are not improving. The phone number is [phone]. You may also follow-up with your primary MD if you prefer. Ice to area of discomfort is recommended. Return/seek medical attention for worsening symptoms. Prescriptions: No Action levothyroxine 88 mcg tablet 88 mcg PO DAILY prednisone 1 mg tablet 2 mg PO DAILY hydrocodone-acetaminophen 5-325 mg tablet 1 tab PO Q6H PRN (Reason: pain) Qty: 20 0RF albuterol sulfate 90 mcg/actuation HFA aerosol inhaler 1 inh inhalation Q4H PRN fluticasone furoate-vilanterol [Breo Ellipta] 100-25 mcg/dose blister with device 1 ea inhalation DAILY omeprazole 20 mg capsule,delayed release(DR/EC) 20 mg PO DAILY PRN Follow Up/Referrals: Katheryn Linn DO [Primary Care Provider, Family Practice] Stand Alone Forms: [employer] Info Instructions
--- NOTE | 2025-07-08 11:37 | CRLHL7_ITS ---
For Patients: As a result of the Cures Act, medical imaging exams and procedure reports are released immediately into your electronic medical record. You may view this report before your referring provider. If you have questions, please contact your health care provider. Indication: Near fall Technique: Pelvis and right hip 3 views. Comparison: None. Findings: Bones: No acute fracture or dislocation. Joint spaces: Mild degenerative disease of the visualized spine. Soft tissues: Sequela of prior left hernia repair. Clips in the pelvis. Impression: No acute fracture or dislocation. Dictated by Fatemeh Sandoval MD @ 07/08/2025 12:05:58 PM (Electronically Signed)
--- NOTE | 2025-07-08 12:06 | CRLHL7_ITS ---
For Patients: As a result of the Century Cures Act, medical imaging exams and procedure reports are released immediately into your electronic medical record. You may view this report before your referring provider. If you have questions, please contact your health care provider. INDICATION: Right hip pain after fall TECHNIQUE: CT right hip without contrast. COMPARISON: Same-day right hip radiographs. FINDINGS: There is no acute fracture or malalignment. [id number] osteoarthrosis of the right hip. Mild degenerative changes of the right sacroiliac joint. Partially imaged severe facet arthropathy in the lower lumbar spine. The bones appear demineralized. No significant right hip joint effusion. Scattered vascular calcifications. Mild enthesopathy about the pelvis. Scattered colonic diverticula. IMPRESSION: No acute osseous abnormality. Please note that all CT scans at this facility use dose modulation, iterative reconstruction, and/or weight-based dosing when appropriate to reduce radiation dose to as low as reasonably achievable. Dictated by Kemi Gale MD @ 07/08/2025 1:17:20 PM (Electronically Signed)
== END 2025-07-08 13:50 | disposition home or self-care (01) ==
PROVIDERS: Emergency Provider Family Medicine; PCP Family Medicine
DX: M16.51 Unilateral post-traumatic osteoarthritis, right hip (principal); M81.0 Age-related osteoporosis without current pathological fracture; W11.XXXA Fall on and from ladder, initial encounter
CPT/HCPCS: 73502; 73700; 99284